=== PATIENT | female | born 1960 | race Caucasian/White ===

== ENCOUNTER 2023-10-10 10:20 | Outpatient (AMB) | payer OTHER, SELFPAY ==
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
[2023-10-10 10:31] VITALS: BMI 48.7
== END 2023-10-10 11:02 | disposition home or self-care (01) ==
PROVIDERS: Visit Provider Orthopaedic Surgery
DX: M54.50 Low back pain, unspecified (principal); M79.604 Pain in right leg
CPT/HCPCS: 99202

== ENCOUNTER 2023-10-10 10:27 | Outpatient (REF) | payer OTHER, SELFPAY ==
--- NOTE | ~2023-10-10 | XR_ITS ---
EXAMINATION: XR HIP, RIGHT CLINICAL INFORMATION: Pain. COMPARISON: None available. TECHNIQUE: AP and frog-leg lateral views of the right hip are submitted, together with a frontal view of the pelvis. FINDINGS: There is bony demineralization. There is marked asymmetric narrowing of the right acetabular joint space, with subchondral sclerosis, significant subchondral cyst formation and peripheral osteophyte formation. The left acetabular joint space is well-maintained. The femoral heads are smooth. No fracture or dislocation is seen. The sacroiliac joints are symmetric and well-maintained. The pubic symphysis is intact. There are incompletely characterized degenerative changes of the lower lumbar spine. XR/XR hip RT min 2V IMPRESSION: There is marked osteoarthritic change of the right hip, with significant subchondral cyst formation. No unusual degenerative change is seen of the left hip. There is no fracture or dislocation.
== END 2023-10-10 10:28 | disposition home or self-care (01) ==
LOC: HO.HOSX 10:27
PROVIDERS: Visit Provider Orthopaedic Surgery
DX: M25.551 Pain in right hip (principal); M54.50 Low back pain, unspecified; M79.604 Pain in right leg
CPT/HCPCS: 73502; 99202

== ENCOUNTER → 2023-10-19 12:45 | Outpatient (BNVA) | payer OTHER, SELFPAY | PROVIDERS: PCP Internal Medicine; Visit Provider Physician Assistant Surgical ==